=== PATIENT | male | born 1995 | race Hispanic/Latino ===

== ENCOUNTER 2024-07-16 08:46 | Emergency (ER) | payer SELFPAY ==
--- NOTE | 2024-07-16 09:14 | ER ---
Nurse's Notes [facility] Name: Александр Sierra Age: 28 yrs Sex: Male : 1995 Arrival Date: 07/16/2024 Time: 08:46 Bed 20 Private MD: Diagnosis: Cough;Acute sinusitis, unspecified Presentation: 07/16 09:06 Chief complaint: Patient states: flu like symptoms x 1.5 weeks. pt reports subjective kc6 fever, cough, and trouble sleeping at night. Coronavirus screen: At this time, the client does not indicate any symptoms associated with coronavirus-19. Ebola Screen: No symptoms or risks identified at this time. Initial Sepsis Screen: Does the patient meet any 2 criteria? No. Patient's initial sepsis screen is negative. Does the patient have a suspected source of infection? No. Patient's initial sepsis screen is negative. Risk Assessment: Do you want to hurt yourself or someone else? Patient reports no desire to harm self or others. Onset of symptoms was July 16, 2024. 09:06 Method Of Arrival: Ambulatory [facility] 09:06 Acuity: JOSE ANGEL 4 kc6 Historical: - Allergies: 09:08 No Known Allergies; kc6 - Home Meds: 09:08 None [Active]; kc6 - PMHx: 09:08 None; kc6 - PSHx: 09:08 None; kc6 - Immunization history:: Adult Immunizations up to date. - Infectious Disease History:: Denies. - Social history:: Smoking status: Patient/guardian denies using tobacco. - Family history:: not pertinent. - Hospitalizations: : No recent hospitalization is reported. Screenin:08 [facility] ED Fall Risk Assessment (Adult) History of falling in the last 3 months, kc6 including since admission No falls in past 3 months (0 pts) Confusion or Disorientation No (0 pts) Intoxicated or Sedated No (0 pts) Impaired Gait No (0 pts) Mobility Assist Device Used No (0 pt) Altered Elimination No (0 pt) Score/Fall Risk Level 0 - 2 = Low Risk Oriented to surroundings, Maintained a safe environment, Educated pt \T\ family on fall prevention, incl call for assistance when getting out of bed. Abuse screen: Denies threats or abuse. Denies injuries from another. Nutritional screening: No deficits noted. Tuberculosis screening: No symptoms or risk factors identified. Assessment: 09:09 General: Appears in no apparent distress. comfortable, well groomed, well developed, kc6 Behavior is calm, cooperative, appropriate for age, Reports fever for > 3 days, feeling ill for > 3 days. Pain: Denies pain. Neuro: Level of Consciousness is awake, alert, obeys commands, Oriented to person, place, time, situation, Appropriate for age. Cardiovascular: Capillary refill < 3 seconds. Respiratory: Reports cough that is persistent pain with cough pain with respiration Airway is patent Trachea midline Respiratory effort is even, unlabored, Respiratory pattern is regular, symmetrical. GI: No signs and/or symptoms were reported involving the gastrointestinal system. : No signs and/or symptoms were reported regarding the genitourinary system. EENT: No signs and/or symptoms were reported regarding the EENT system. Derm: No signs and/or symptoms reported regarding the dermatologic system. Skin is intact, is healthy with good turgor, Skin is pink, warm \T\ dry. Musculoskeletal: No signs and/or symptoms reported regarding the musculoskeletal system. Circulation, motion, and sensation intact. Range of motion: intact in all extremities. Vital Signs: 09:06 BP 139 / 82; Pulse 80; Resp 19 S; Temp 98.5(O); Pulse Ox 97% on R/A; Weight 87.09 kg kc6 (R); Height 5 ft. 6 in. (R); 09:06 Body Mass Index 30.99 (87.09 kg, 167.64 cm) [facility] ED Course: 08:48 Patient arrived in ED. mr 08:54 Augusto Garcia MD is Attending Physician. rn 09:06 Desiree Valentin, OSEAS is Primary Nurse. kc6 09:07 Triage completed. kc6 09:08 Arm band placed on. kc6 09:08 Patient has correct armband on for positive identification. Bed in low position. Call [facility] light in reach. Side rails up X 1. Pulse ox on. NIBP on. Door closed. Noise minimized. Lights dimmed. Pillow given. Verbal reassurance given. 09:08 Patient maintains SpO2 saturation greater than 95% on room air. kc6 09:38 No provider procedures requiring assistance completed. Patient did not have IV access kc during this emergency room visit. Administered Medications: No medications were administered Medication: :38 VIS not applicable for this client. kc6 Outcome: :14 Discharge ordered by . oseas :38 Discharged to home ambulatory, kc6 :38 Condition: good :38 Discharge instructions given to patient, Instructed on discharge instructions, follow up and referral plans. medication usage, Demonstrated understanding of instructions, follow-up care, medications, Prescriptions given X :38 Patient left the ED. kc6 Signatures: Estelle Pickering, Reg Robert Augusto Garcia MD MD rn Campbell, Kaitlyn, RN RN kc6
--- NOTE | 2024-07-16 09:14 | EDPHYS ---
Physician Documentation [facility] Name: Александр Sierra Age: 28 yrs Sex: Male : 1995 Arrival Date: 07/16/2024 Time: 08:46 Bed 20 Private MD: ED Physician Augusto Garcia HPI: 07/16 09:10 This 28 yrs old Male presents to ER via Ambulatory with complaints of Flu rn Symptoms. 09:10 The patient or guardian reports cough, flu symptoms. Onset: The symptoms/episode rn began/occurred 10 day(s) ago. Severity of symptoms: At their worst the symptoms were mild, in the emergency department the symptoms are unchanged. Modifying factors: The symptoms are alleviated by nothing, the symptoms are aggravated by nothing. The patient has not experienced similar symptoms in the past. The patient has not recently seen a physician. Patient reports cough and congestion for 10 days now. Still having on and off fever. Used to smoke but quit 2 weeks ago. Denies dyspnea. No hemoptysis. Came in today because symptoms were not improving after a week and a half.. Historical: - Allergies: 09:08 No Known Allergies; kc6 - Home Meds: 09:08 None [Active]; kc6 - PMHx: 09:08 None; kc6 - PSHx: 09:08 None; kc6 - Immunization history:: Adult Immunizations up to date. - Infectious Disease History:: Denies. - Social history:: Smoking status: Patient/guardian denies using tobacco. - Family history:: not pertinent. - Hospitalizations: : No recent hospitalization is reported. ROS: 09:10 Constitutional: Positive for subjective fever and chills Cardiovascular: Negative for rn chest pain, palpitations, and edema, Respiratory: Positive for cough, negative for shortness of breath Abdomen/GI: Negative for abdominal pain, nausea, vomiting, diarrhea, and constipation, Back: Negative for injury and pain, : Negative for injury, bleeding, discharge, and swelling, MS/Extremity: Negative for injury and deformity, Neuro: Negative for headache, weakness, numbness, tingling, and seizure, Exam: 09:10 Constitutional: This is a well developed, well nourished patient who is awake, alert, rn and in no acute distress. Head/Face: Normocephalic, atraumatic. ENT: Mild pharyngeal erythema, no stridor or exudate Cardiovascular: Regular rate and rhythm. No pulse deficits. Respiratory: Speaking full sentences, unlabored. No increased work of breathing, no retractions or nasal flaring. Neuro: Awake and alert, GCS 15 Vital Signs: 09:06 BP 139 / 82; Pulse 80; Resp 19 S; Temp 98.5(O); Pulse Ox 97% on R/A; Weight 87.09 kg kc6 (R); Height 5 ft. 6 in. (R); 09:06 Body Mass Index 30.99 (87.09 kg, 167.64 cm) 6 MDM: 08:54 Medical Screening Exam initiated rn 09:10 Differential Diagnosis: Bronchitis Upper Respiratory Infection Sinusitis Pharyngitis rn Viral Syndrome. Data reviewed: vital signs, nurses notes, and as a result, I will discharge patient. Counseling: I had a detailed discussion with the patient and/or guardian regarding the historical points, exam findings, and any diagnostic results supporting the discharge/admit diagnosis, the need for outpatient follow up, to return to the emergency department if symptoms worsen or persist or if there are any questions or concerns that arise at home. Special discussion: I discussed with the patient/guardian in detail that at this point there is no indication for admission to the hospital. It is understood, however, that if the symptoms persist or worsen the patient needs to return immediately for re-evaluation. 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 Day 2, 3, 4 , 5 take one (1) tablet once daily.; 6 tablet; Refills: 0, Product Selection Permitted Signatures: Augusto Garcia MD MD rn Homero, Desiree, RN RN kc6
[2024-07-16 09:43] VITALS: BP 139/82; TEMP 98.5; O2SAT 97
== END 2024-07-16 09:38 | disposition home or self-care (01) ==
LOC: ER 08:46
DX: J01.90 Acute sinusitis, unspecified (principal)
CPT/HCPCS: 99283